=== PATIENT | male | born 1960 | race Caucasian/White ===

== ENCOUNTER 2017-05-15 10:57 | Emergency (ER) | payer OTHER ==
[~2017-05-15] VITALS: Ht 177.8 cm; Wt 117.9 kg
--- NOTE | 2017-05-15 11:50 | RAD ---
Left wrist, 3 views, 05/15/2017: History: Fall There is an oblique fracture of the distal radius with the fracture line involving its articular surface. The fracture is nondisplaced. No other fracture or dislocation is identified. 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 The carpal bones are unremarkable. IMPRESSION: Nondisplaced fracture of the distal left radius.
[2017-05-15 12:15] VITALS: BP 158/81
[2017-05-15] MEDS ORDERED: IBUPROFEN 600 MG TABLET. PO ONE (12:15)
[2017-05-15] MEDS ORDERED: IBUP800T19 PO (12:22)
[2017-05-15] MEDS ORDERED: HYDR-971 PO (12:22)
--- NOTE | 2017-05-15 12:23 | PHYS DOC ---
Past History Past Medical History: No Pertinent History Smoking: Non-smoker Alcohol Use: None Drug Use: None Adult General Chief Complaint Chief Complaint: UPPER EXTREMITY INJURY HPI HPI 56 -year-old right hand male patient states he lost his balance while he was at work and almost falling down and use his left arm to prevent of fall landed on hyperextended left hand. Patient complaining of left wrist pain and rated his pain 8/10. Patient denies focal neuro deficit and other injuries Review of Systems Review of Systems Constitutional: Denies fever or chills [] Eyes: Denies change in visual acuity, redness, or eye pain [] HENT: Denies nasal congestion or sore throat [] Respiratory: Denies cough or shortness of breath [] Cardiovascular: No additional information not addressed in HPI [] GI: Denies abdominal pain, nausea, vomiting, bloody stools or diarrhea [] : Denies dysuria or hematuria [] Musculoskeletal: Denies back pain, reports joint pain [] Integument: Denies rash or skin lesions [] Neurologic: Denies headache, focal weakness or sensory changes [] Endocrine: Denies polyuria or polydipsia [] All other systems were reviewed and found to be within normal limits, except as documented in this note. Physical Exam Physical Exam Constitutional: Well developed, well nourished, mild distress, non-toxic appearance. [] HENT: Normocephalic, atraumatic, bilateral external ears normal, oropharynx moist, no oral exudates, nose normal. [] Eyes: PERRLA, EOMI, conjunctiva normal, no discharge. [] Neck: Normal range of motion, no tenderness, supple, no stridor. [] Cardiovascular:Heart rate regular rhythm, no murmur [] Lungs & Thorax: Bilateral breath sounds clear to auscultation [] Skin: Warm, dry, no erythema, no rash. [] Back: No tenderness, no CVA tenderness. [] Extremities: Left wrist without deformity or contusion, tenderness in radial side of wrist without neurovascular deficit[] Neurologic: Alert and oriented X 3, normal motor function, normal sensory function, no focal deficits noted. [] Psychologic: Affect normal, judgement normal, mood normal. [] EKG EKG [] Radiology/Procedures Radiology/Procedures [] Course & Med Decision Making Course & Med Decision Making Pertinent Imaging studies reviewed. (See chart for details) nondisplaced intra- articular distal radial fracture Left wrist posterior splint was applied by [employer].Patient instructed to follow with on-call orthopedic physician or work comp. The patient did not want to have pain medication in ER. [] Dragon Disclaimer Dragon Disclaimer This electronic medical record was generated, in whole or in part, using a voice recognition dictation system. Departure Departure: Impression: Primary Impression: Distal radius fracture, left Additional Impression: Fall Disposition: HOME, SELF-CARE (At 1219) Condition: IMPROVED Referrals: PCP,UNKNOWN (PCP) Patient Instructions: Wrist Fracture Additional Instructions: Follow-up with Dr. Pugh [employer] client [employer] analyst orthopedic physician, call [phone] to make an Appointment in 1-2 days Apply ice and affected area Return emergency room as needed Scripts Hydrocodone Bit/Acetaminophen (NORCO 5-325 TABLET) 1 Each Tablet 1 TAB PO PRN Q6HRS Y for PAIN, #20 TAB 0 Refills Prov: RADHA SALMON MD 05/15/17 Ibuprofen (IBUPROFEN) 800 Mg Tablet 800 MG PO TID for PAIN, #30 TAB Prov: RADHA SALMON MD 05/15/17 Problem Qualifiers RADHA SALMON MD May 15, 2017 12:23
== END 2017-05-15 12:28 | disposition home or self-care (01) ==
LOC: ER 10:57
DX: S52.502A Unspecified fracture of the lower end of left radius, initial encounter for closed fracture (principal); W01.0XXA Fall on same level from slipping, tripping and stumbling without subsequent striking against object, initial encounter; Y93.89 Activity, other specified; Y99.8 Other external cause status; Y92.89 Other specified places as the place of occurrence of the external cause
CPT/HCPCS: 29125; 73110; 99284-25

== ENCOUNTER → 2017-06-26 | Outpatient (CLI) | payer OTHER ==
[~2017-06-26] MED LIST: HYDR-971 PO; IBUP800T19 PO
--- NOTE | 2017-06-26 10:21 | RAD ---
Left wrist, 3 views, 06/26/2017: History: Wrist pain, fracture Comparison is made to a study from 05/15/2017. The current images were obtained through a radiopaque cast, compromising bony detail. The previously seen distal radial fracture line is no longer clearly visible. The fracture remains nondisplaced. There is irregularity along the articular surface of the distal radius. 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 IMPRESSION: Stable nondisplaced distal radial fracture.
== END | disposition home or self-care (01) ==
LOC: PMG 09:07
PROVIDERS: ATTEND Physician Assistant Medical
DX: S52.592D Other fractures of lower end of left radius, subsequent encounter for closed fracture with routine healing (principal); M18.32 Unilateral post-traumatic osteoarthritis of first carpometacarpal joint, left hand; X58.XXXD Exposure to other specified factors, subsequent encounter
CPT/HCPCS: 73110